=== PATIENT | female | born 1965 | race Caucasian/White ===

== ENCOUNTER 2016-09-27 18:03 | Observation (INO) ==
[2016-09-27] MEDS ORDERED: Aspirin 81 MG TAB.CHEW PO ONE (18:21)
[2016-09-27 18:45] LABS: Basophils # 0.1 K/mcL (0.0-0.2); Basophils % 0.6 %; Eosinophils # 0.1 K/mcL (0.0-0.6); Hematocrit 35.8 % (35.3-44.9); Hemoglobin 11.7 g/dL (11.5-15.4); Lymphocytes % 20.3 %; Mean Corpuscular HGB Conc 32.7 g/dL (31.6-35.5); Mean Corpuscular Hemoglobin 28.8 pg (28.0-33.3); Mean Corpuscular Volume 88.2 fL (83.0-100.0); Mean Platelet Volume 8.7 fL (9.4-12.4); Monocytes # 0.5 K/mcL (0.0-1.3); Monocytes % 4.7 %; Neutrophils # 7.3 K/mcL (1.6-8.9); Platelet Count 272 K/mcL (140-400); Red Blood Count 4.06 M/mcL (3.82-4.97); Red Cell Distribution Width 14.7 % (11.5-14.5); Segmented Neutrophils % 72.4 %
[2016-09-27 18:48] LABS: INR 1.1; Prothrombin Time 12.1 Seconds (9.4-12.1)
[2016-09-27 18:54] LABS: BUN/Creatinine Ratio 15 (6-26); Blood Urea Nitrogen 11 mg/dL (7-20); Calcium 9.2 mg/dL (8.6-10.8); Carbon Dioxide 24 mEq/L (19-29); Chloride 104 mEq/L (98-109); Glucose 89 mg/dL (70-99); Osmolality,Calculated 285 (280-300); Potassium 3.6 mEq/L (3.5-4.5); Sodium 138 mEq/L (136-145); eGFR For African Americans > 60 (> 60); eGFR For Non-African Americans > 60 (> 60)
--- NOTE | 2016-09-27 19:01 | Emergency Department Note ---
START Narrative - START START: I examined this patient and my medical decision-making was reviewed with the [facility] OFFICIAL/PA/Advanced Practice Nurse/Resident Physician. I agree with the documented findings, disposition and treatment plan as described except to the extent set forth below. ED attending note: Patient seen with emergency medicine resident Dr. Alamo. Please see a copy of his note for details of the H&P, evaluation, management and disposition of this patient. We independently had [id number] contact with the patient Briefly: 51-year-old female smoker no history of hypertension family history of coronary artery disease has a hard score of 3 EKG no acute ischemic changes pending labs and x-ray. Patient be worked up for ACS. Disposition pending. Patient stable.
--- NOTE | 2016-09-27 20:12 | Emergency Department Note ---
Disposition Clinical Impression: Chest pain Qualifiers: Chest pain type: unspecified Qualified Code(s): R07.9 - Chest pain, unspecified Disposition: Admitted As Inpatient Condition: Good Time of Disposition: 22:15 General Adult HPI - General Chief complaint: ED Chest Pain Stated complaint: N/V, Sweating , left shoulder pain Time Seen by Provider: 09/27/16 18:18 Source: patient Limitations: no limitations Nursing Notes Reviewed: Yes Vital Signs Reviewed: Yes - History of Present Illness HPI Narrative: Patient was awoken today and noticed that she had left arm pain. States that she got she slept on it wrong. Around 3:30 she began to have chest pain shortness of breath, diaphoretic the pain radiated up into her neck she had nauseated and vomited. She has no cardiac history. She states the pain was an ache on the left side of her chest. Pain Scale: 9 - Related Data Home Medications Medication Instructions Recorded Confirmed Escitalopram [Lexapro] 20 mg PO DAILY 09/27/16 09/27/16 Allergies Allergy/AdvReac Type Severity Reaction Status Date / Time codeine Allergy Unresponsiv Verified 09/27/16 21:00 e All systems ED: reviewed and negative except as stated. Constitutional: Denies: fever, chills ENT ED: Denies: congestion Cardiovascular: Reports: chest pain. Denies: palpitations, dyspnea on exertion , orthopnea, syncope Respiratory: Reports: dyspnea. Denies: cough Gastrointestinal: Reports: nausea (Associated with the chest pain), vomiting (A couple episodes associated with the chest pain), diarrhea (Chronic. States after she had her gallbladder out it is been ongoing.). Denies: abdominal pain Genitourinary: Denies: urgency, dysuria, frequency, hematuria Musculoskeletal: Reports: neck pain. Denies: back pain Integumentary: Denies: rash Neurological: Denies: headache, weakness Past Medical History - Past Medical History Medical history: Reports: no medical history Psychiatric history: Reports: anxiety, depression - Social History Smoking Status: Former smoker Smokeless Tobacco Status: No Alcohol use: Reports: none Drug use: Reports: none Physical Exam - General Limitations: no limitations General appearance: alert, in no apparent distress - Head Head exam: atraumatic, normocephalic - Eye Eye exam: Present: normal appearance, PERRL, EOMI. Absent: scleral icterus - ENT ENT exam: normal exam, normal oropharynx, mucous membranes moist - Neck Neck exam: Present: normal inspection, full ROM, trachea midline. Absent: meningismus - Chest Chest inspection: Present: normal inspection, symmetric chest wall rise - Respiratory Respiratory exam: Present: normal lung sounds bilaterally. Absent: respiratory distress - Cardiovascular Cardiovascular exam: Present: regular rate, normal rhythm, normal heart sounds - Abdominal Exam Abdominal exam: Present: soft, Non-Tender, normal bowel sounds - Extremities Exam Extremities exam: Present: normal inspection, full ROM - Expanded Lower Extremity Exam Hip/Pelvis exam: Present: normal inspection, full ROM - Back Exam Back exam: Present: normal inspection, full ROM. Absent: tenderness - Neurological Exam Neurological exam: Present: alert, oriented X3 - Psychiatric Psychiatric exam: Present: normal affect, normal mood - Skin Skin exam: Present: warm, dry, intact, normal color. Absent: rash, cyanosis, diaphoresis Course Course Narrative: Well-appearing female patient resting comfortably in bed in no distress. She states that she woke up this afternoon with some left shoulder pain that radiated down into her arm. She states she thought she slept on it wrong. Went to work. Around 3:30 at work she developed chest pain that radiated up into her neck. She got very diaphoretic and nauseated and vomited one time. Patient denies any cardiac history. She denies any family cardiac history. She states she is comfortable at this time however left arm is still aching. She is refusing pain medication. We will do a cardiac workup on patient while she is here. She is agreeable to this. - Reevaluation(s) Reevaluation #1: Patient resting comfortably in bed. I am concerned for ACS. She has never had a cardiac workup and her chest pain is very suspicious for this. We will admit patient for cardiac workup. She is agreeable to this plan. Patient's lab work is unremarkable. There is no ST elevation or depression noted on her EKG. However her story is very concerning for ACS. Time: 20:25 Vital Signs Temperature 97.9 F 09/27/16 18:08 Pulse Rate 89 09/27/16 18:08 Respiratory Rate 18 09/27/16 18:08 Blood Pressure 148/87 09/27/16 18:08 O2 Sat by Pulse Oximetry 97 09/27/16 18:08 Temperature 97.9 F 09/27/16 21:36 Pulse Rate 88 09/27/16 21:36 Respiratory Rate 17 09/27/16 21:36 Blood Pressure 151/88 09/27/16 21:36 O2 Sat by Pulse Oximetry 96 09/27/16 21:36 Oxygen Delivery Oxygen Delivery Room Air Medical Decision Making - Lab Data Result diagrams: 09/27/16 18:31 09/27/16 18:31 Lab Results 09/27/16 09/27/16 09/27/16 Range/Units 18:30 18:31 18:31 WBC 10.0 (4.3-11.1) K/mcL RBC 4.06 (3.82-4.97) M/mcL Hgb 11.7 (11.5-15.4) g/dL Hct 35.8 (35.3-44.9) % MCV 88.2 (83.0-100.0) fL MCH 28.8 (28.0-33.3) pg MCHC 32.7 (31.6-35.5) g/dL RDW 14.7 H (11.5-14.5) % Plt Count 272 (140-400) K/mcL MPV 8.7 L (9.4-12.4) fL Immature Gran % 1.0 (0-4) % Seg Neutrophils % 72.4 % Lymphocytes % 20.3 % Monocytes % 4.7 % Eosinophils % 1.0 % Basophils % 0.6 % Neutrophils # 7.3 (1.6-8.9) K/mcL Lymphocytes # 2.0 (0.6-4.6) K/mcL Monocytes # 0.5 (0.0-1.3) K/mcL Eosinophils # 0.1 (0.0-0.6) K/mcL Basophils # 0.1 (0.0-0.2) K/mcL PT 12.1 (9.4-12.1) Seconds INR 1.1 Sodium (136-145) mEq/L Potassium (3.5-4.5) mEq/L Chloride (98-109) mEq/L Carbon Dioxide (19-29) mEq/L BUN (7-20) mg/dL Creatinine (0.57-1.11) mg/dL Est GFR ( Amer) (> 60) Est GFR (Non-Af Amer) (> 60) BUN/Creatinine Ratio (6-26) Glucose (70-99) mg/dL Calculated Osmolality (280-300) Calcium (8.6-10.8) mg/dL Troponin I (0-0.03) ng/mL Triglycerides 230 H (< 150) mg/dL Cholesterol 190 (< 200) mg/dL LDL Cholesterol, Calc 95 (0-99) mg/dL VLDL Cholesterol, Calc 46 H (< 31) mg/dL HDL Cholesterol 49 (40-59) mg/dL Cholesterol/HDL Ratio 3.9 (0-4.9) Urine Test (Negative) 09/27/16 09/27/16 09/27/16 Range/Units 18:31 18:31 19:55 WBC (4.3-11.1) K/mcL RBC (3.82-4.97) M/mcL Hgb (11.5-15.4) g/dL Hct (35.3-44.9) % MCV (83.0-100.0) fL MCH (28.0-33.3) pg MCHC (31.6-35.5) g/dL RDW (11.5-14.5) % Plt Count (140-400) K/mcL MPV (9.4-12.4) fL Immature Gran % (0-4) % Seg Neutrophils % % Lymphocytes % % Monocytes % % Eosinophils % % Basophils % % Neutrophils # (1.6-8.9) K/mcL Lymphocytes # (0.6-4.6) K/mcL Monocytes # (0.0-1.3) K/mcL Eosinophils # (0.0-0.6) K/mcL Basophils # (0.0-0.2) K/mcL PT (9.4-12.1) Seconds INR Sodium 138 (136-145) mEq/L Potassium 3.6 (3.5-4.5) mEq/L Chloride 104 (98-109) mEq/L Carbon Dioxide 24 (19-29) mEq/L BUN 11 (7-20) mg/dL Creatinine 0.75 (0.57-1.11) mg/dL Est GFR ( Amer) > 60 (> 60) Est GFR (Non-Af Amer) > 60 (> 60) BUN/Creatinine Ratio 15 (6-26) Glucose 89 (70-99) mg/dL Calculated Osmolality 285 (280-300) Calcium 9.2 (8.6-10.8) mg/dL Troponin I 0.00 (0-0.03) ng/mL Triglycerides (< 150) mg/dL Cholesterol (< 200) mg/dL LDL Cholesterol, Calc (0-99) mg/dL VLDL Cholesterol, Calc (< 31) mg/dL HDL Cholesterol (40-59) mg/dL Cholesterol/HDL Ratio (0-4.9) Urine Test Negative (Negative) 09/27/16 Range/Units 20:32 WBC (4.3-11.1) K/mcL RBC (3.82-4.97) M/mcL Hgb (11.5-15.4) g/dL Hct (35.3-44.9) % MCV (83.0-100.0) fL MCH (28.0-33.3) pg MCHC (31.6-35.5) g/dL RDW (11.5-14.5) % Plt Count (140-400) K/mcL MPV (9.4-12.4) fL Immature Gran % (0-4) % Seg Neutrophils % % Lymphocytes % % Monocytes % % Eosinophils % % Basophils % % Neutrophils # (1.6-8.9) K/mcL Lymphocytes # (0.6-4.6) K/mcL Monocytes # (0.0-1.3) K/mcL Eosinophils # (0.0-0.6) K/mcL Basophils # (0.0-0.2) K/mcL PT (9.4-12.1) Seconds INR Sodium (136-145) mEq/L Potassium (3.5-4.5) mEq/L Chloride (98-109) mEq/L Carbon Dioxide (19-29) mEq/L BUN (7-20) mg/dL Creatinine (0.57-1.11) mg/dL Est GFR ( Amer) (> 60) Est GFR (Non-Af Amer) (> 60) BUN/Creatinine Ratio (6-26) Glucose (70-99) mg/dL Calculated Osmolality (280-300) Calcium (8.6-10.8) mg/dL Troponin I 0.00 (0-0.03) ng/mL Triglycerides (< 150) mg/dL Cholesterol (< 200) mg/dL LDL Cholesterol, Calc (0-99) mg/dL VLDL Cholesterol, Calc (< 31) mg/dL HDL Cholesterol (40-59) mg/dL Cholesterol/HDL Ratio (0-4.9) Urine Test (Negative) Attestation Statement - Attestation Attestation: Dr Espinoza note: Patient was seen in conjunction with resident Dr. Karime Alamo; please see her charting for complete documentation. I have spent [id number] and with the patient and I agree with patient's treatment and disposition; ekg shows no acute injury; initial troponin testing unremarkable;
--- NOTE | 2016-09-27 22:04 | Internal Med History&Physical ---
Date of Encounter: 09/28/16 Time of Encounter: 22:04 Assessment and Plan (1) Chest pain Current visit: Yes Status: Acute -Unstable angina. -Initial presentation concerning for ACS-L sided chest pain with radiation to L neck and L arm. Non pleuritic. -3 episodes today. Reproducible on palpation of left chest-"squeezing pain that does not radiate" and that her "heart normally is fast" and patient complains of always feeling hot. Total hysterectomy and quit hormone therapy several years ago via physician guidance. No previous thyroid studies -No previous cardiac history of workup. -CXR, EKG, Trop, Normal. Full dose Aspirin given in ED -Odd presentation with reproducible CP on palpation, costocondritis association too? Regardless, patient warrants ACS workup. -Patient is able to walk, however, is obese and would benefit more from nuclear stress test. -Patient low risk, lovenox 30mg q12h. Plan -ACS rule out -Lipid panel drawn. Redraw labs in morning. TSH, T4 -Nuclear stress test ordered for morning -NPO midnight -Top x2. Hold off on Bblocker because of stress test -Nitro PRN -No cardiology consult needed at this time Qualifiers: Chest pain type: unspecified Qualified Code(s): R07.9 - Chest pain, unspecified (2) Hypertension Current visit: Yes Status: Acute -BP rechecked by myself 164/92. -Denies previous use of hypertensive medicine. -Per attending, amlodipine 5mg for BP Plan -Amlodipine 5mg with goal of 140/90 Qualifiers: Hypertension type: essential hypertension Qualified Code(s): I10 - Essential (primary) hypertension (3) DVT prophylaxis Current visit: Yes Status: Acute -Not concern for PE, no MA -lovenox, subthereuputic. Internal Medicine - H&P: HPI Chief complaint: L sided chest pain Admitted From: Emergency Dept Plans for Post Hospital Care: Home History of present illness: Ms. Cid is a 51 year old female, past medical history depression/anxiety, admitted for ACS rule out. Patient woke up this morning with left shoulder pain and radiation down the left arm described as a squeezing sensation. Associated Numbness and tingling in the left hand. Lasted for a few minutes. 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 Associated nausea, one episode of vomiting and diaphoresis. Denies palpitation, non-pleuritic CP. Pain reproducible on palpation. Denies blurry vision, headache, shortness of breath, abdominal pain, dysuria, acid reflux,FND. Patient resting comfortably in bed. 3 episodes since this morning. Did have syncopal episode 20 years ago. Denies ever having palpitations. No cardiac workup. Admits to mother having "a ring placed in her heart to monitor heart rate" age 70, father with hypertension and diabetes. Former smoker quit 12 years ago. Denies alcohol use, excessive caffeine use, or drug use. Never treated for hypertension. States "my heart rate is usually fast ". Admits to lifelong feeling hot and warm. No thyroid workup in past. Past Med Surg Social Fam HX - Past Medical History Medical history: no medical history Psychiatric history: anxiety, depression - Past Surgical History Surgical History: cholecystectomy, hysterectomy, orthopedic, other - Social History Smoking Status: Former smoker Smokeless Tobacco Status: No Alcohol use: none Drug use: none - Family History Mother Hx Family Cardiac Disorders: Yes ("ring placed in heart to monitor heart rate") Father Hx Family Cancer: Yes (liver) Internal Medicine - H&P: Meds Escitalopram [Lexapro] 20 mg PO DAILY 09/27/16 [History] Allergies codeine Allergy (Verified 09/27/16 21:00) Unresponsive All Systems PM: A 10-system review of systems was performed and is negative for pertinent findings except as documented above in the HPI. - Constitutional Constitutional: as per HPI - EENT Eyes: no change in vision, no discharge, no pain, no photophobia - Cardiovascular Cardiovascular ROS IM: as per HPI - Respiratory Respiratory: as per HPI - Gastrointestinal Gastrointestinal: as per HPI - Constitutional Vitals: Temp Pulse Resp BP Pulse Ox 97.9 F 88 17 151/88 96 09/27/16 21:36 09/27/16 21:36 09/27/16 21:36 09/27/16 21:36 09/27/16 21:36 General appearance: Present: A&O X 3, no acute distress, answers questions appropriately - Head Head exam: Present: atraumatic, normocephalic - Eye Eye exam: Present: PERRL, conjuntiva pink, sclera anicteric Pupils: Present: PERRL - Neck Neck exam general surgery: Present: supple, trachea midline. Absent: lymphadenopathy - Respiratory Respiratory exam: Present: CTAB. Absent: accessory muscle use, rales, rhonchi, wheezes - Cardiovascular Cardiovascular exam: Present: RRR, +S1, +S2. Absent: diastolic murmur, gallop, rubs, systolic murmur - GI/Abdominal GI/Abdominal exam: Present: soft, no peritoneal signs. Absent: distended, tenderness - Neurological Exam Neurological exam: Present: CN II-XII intact, oriented X3, no focal deficits - Psychiatric Psychiatric exam: Present: normal affect, normal mood - Other Additional findings: Chest pain reproducible on palpation of L chest. Internal Med - H&P Results - Labs CBC & Chem 7: 09/27/16 18:31 09/27/16 18:31
[2016-09-27] MEDS ORDERED: Ondansetron 4 MG/2 ML VIAL IVP PRN (22:12)
[2016-09-27] MEDS ORDERED: Naloxone 0.4 MG/ML INJ IVP PRN (22:12)
[2016-09-27] MEDS ORDERED: Acetaminophen 325 MG TABLET PO PRN (22:12)
[2016-09-27 22:36] LABS: Chol/HDL Ratio 3.9 (0-4.9)
[2016-09-27] MEDS ORDERED: Nitroglycerin 0.4 MG TAB.SUBL SL PRN (23:17)
[2016-09-27] MEDS: *HR* Enoxaparin 30 MG/0.3 ML SYRINGE SQ SCH (23:54)
[2016-09-27] MEDS: amLODIPine 5 MG TABLET PO SCH (23:55)
[2016-09-28] MEDS: *HR* Enoxaparin 30 MG/0.3 ML SYRINGE SQ SCH ×2 (05:01→17:05)
[2016-09-28 05:50] LABS: Hematocrit 36.5 % (35.3-44.9); Hemoglobin 11.9 g/dL (11.5-15.4); Mean Corpuscular HGB Conc 32.6 g/dL (31.6-35.5); Mean Corpuscular Hemoglobin 29.4 pg (28.0-33.3); Mean Corpuscular Volume 90.1 fL (83.0-100.0); Mean Platelet Volume 9.3 fL (9.4-12.4); Platelet Count 272 K/mcL (140-400); Red Blood Count 4.05 M/mcL (3.82-4.97)
[2016-09-28] MEDS ORDERED: Regadenoson 0.4 MG/5 ML SYRINGE IVP ONE (06:05)
[2016-09-28 06:06] LABS: BUN/Creatinine Ratio 18 (6-26); Blood Urea Nitrogen 13 mg/dL (7-20); Calcium 9.2 mg/dL (8.6-10.8); Carbon Dioxide 25 mEq/L (19-29); Chloride 105 mEq/L (98-109); Glucose 104 mg/dL (70-99); Osmolality,Calculated 290 (280-300); Potassium 3.6 mEq/L (3.5-4.5); Sodium 140 mEq/L (136-145); eGFR For African Americans > 60 (> 60); eGFR For Non-African Americans > 60 (> 60)
[2016-09-28 06:31] LABS: Thyroid Stimulating Hormone 3.504 mcIU/mL (0.350-4.840)
[2016-09-28] MEDS: amLODIPine 5 MG TABLET PO SCH (09:14)
[2016-09-28] MEDS: Aspirin Enteric Coated 81 MG Tablet PO SCH (09:14)
--- NOTE | 2016-09-28 13:22 | ECHO - Doppler Report ---
Echocardiogram Name: Brooke Cid Date of Study: 09/28/2016 Date: 1965 Ht: 65.0 in Medical Record#: [id number] Age: 51 Wt: 277.0 lb Gender: Female BSA: 2.27 Order #: [id number] Location: [facility] Room #: 3B48 Reading Physician: Go Goldsmith DO, REAGAN, MAULIK Finishing Trimmer: Jacquelin Delvalle RDCS Ordering Physician: Reena Chaidez MD Primary Physician: Jefry Valdez DO Indications: Chest pain Impressions: LVEF 60-65%. Normal LV chamber size, wall thickness and function. Mild left ventricular diastolic dysfunction. Normal right ventricular structure and function. Unable to estimate RVSP due to lack of TR jet. No significant valvular dysfunction. Left Ventricular Wall Motion: Rest Echo Findings All wall segments showed normal motion. Findings: Study Quality * Technically sub-optimal due to body habitus. ECG Findings * Normal sinus rhythm. Left Ventricle * LVEF 60-65%. * Normal LV chamber size, wall thickness and function. * Mild left ventricular diastolic dysfunction. Right Ventricle * Normal right ventricular structure and function. Left Atrium * Normal left atrial size. Right Atrium * Normal right atrial size. Interatrial Septum * Interatrial septum not well evaluated. Aortic Valve * Trileaflet aortic valve with normal function. * No aortic stenosis. * No aortic regurgitation. Mitral Valve * Normal mitral valve structure and function. * No mitral regurgitation. * No mitral stenosis. Tricuspid Valve * Normal tricuspid valve structure and function. * No tricuspid regurgitation. * Unable to estimate RVSP due to lack of TR jet. Pulmonic Valve * Pulmonic valve is not well visualized. Aorta * Normally sized aortic root. Pericardium * The pericardium appears normal. * Appearance is consistent with a {type} mitral valve replacement. Function appears {function{. IVC * Normal IVC dimensions and inspiratory collapse. Pulmonary Artery * Normal visualized portions of the main pulmonary artery. History Family History of CAD Measurements: BP: 136/ 80 2D Normal Values RVIDd: 3.40 cm <2.7 cm IVSd: 1.00 cm 0.6 - 1.0 cm LVIDd: 4.60 cm 3.7 - 5.6 cm LVPWd: .90 cm 0.6 - 1.1 cm LVIDs: 2.50 cm 1.5 - 3.6 cm AO: 2.50 cm < 4.0 cm LA: 3.00 cm 2.0 - 4.0cm %FS: 45.70 cm >25 % LA volume: 29 Mitral Valve Peak E:.76 m/sec Peak A:.90 m/sec E/A Ratio:0.8 Peak E' Lat Jonathan:13 cm/s Peak E' Med Jonathan:7.21 cm/s E/E' Lat Ratio:5.8 E/E' Med Ratio:10.5 Updated by Go Goldsmith DO, REAGAN, MAULIK, ANN on 09/28/2016 1:17:49 PM electronically signed on 09/28/2016 1:18:29 PM with status of Final Wall Motion Lan: 1=Normal, 2=Hypokinesis, 3=Akinesis, 4=Dyskinesis, 5=Aneurysmal, 6=Hyperkinetic, X=Not Visualized (Blank)=Missing
--- NOTE | 2016-09-28 14:13 | Internal Med Progress Note ---
Date of Encounter: 09/28/16 Time of Encounter: 13:00 - Assessment and plan (1) Chest pain Current Visit: Yes Status: Acute Assessment and plan: Patient currently denies chest pain but states that she continues to have bouts of chest pressure. Chest x-ray negative. Troponins negative. 2 day nuclear stress test in process. ITS Impressions Chest X-Ray 09/27/16 18:21 IMPRESSION: No acute process. D/ / Michael Momin MD / Michael Momin MD Interpreting Provider: Michael Momin MD Echocardiogram impressions: LVEF 60-65%. Normal LV chamber size, wall thickness and function. Mild left ventricular diastolic dysfunction. Normal right ventricular structure and function. Unable to estimate RVSP due to lack of TR jet. No significant valvular dysfunction. Qualifiers: Chest pain type: unspecified Qualified Code(s): R07.9 - Chest pain, unspecified (2) Headache Current Visit: Yes Status: Acute Assessment and plan: Is resolving, likely secondary to caffeine abstinence. No vision or balance changes. (3) Hypertension Current Visit: Yes Status: Acute Assessment and plan: No antihypertensive medications at home. Started on amlodipine, currently normotensive, will continue to trend. Qualifiers: Hypertension type: essential hypertension Qualified Code(s): I10 - Essential (primary) hypertension (4) DVT prophylaxis Current Visit: Yes Status: Acute Assessment and plan: Subcutaneous Lovenox (5) Morbid obesity with BMI of 45.0-49.9, adult Current Visit: Yes Status: Chronic - Subjective Interval history: Patient seen and examined. On examination, patient sitting upright in bed watching television. She denies any pain at this time and states she is still having intermittent bouts of chest pressure. She denies shortness of breath. She states the headache had started this morning is starting to resolve she is attributing that to her drinking caffeine with lunch. - Constitutional Vitals: Temp Pulse Resp BP Pulse Ox 97.9 F 85 16 124/73 94 09/28/16 11:00 09/28/16 11:00 09/28/16 11:00 09/28/16 11:00 09/28/16 11:00 General appearance: Present: A&O X 3, morbidly obese, pleasant, no acute distress, answers questions appropriately - Head Head exam: Present: atraumatic, normocephalic - Eye Eye exam: Present: PERRL, conjuntiva pink, sclera anicteric Pupils: Present: PERRL - Neck Neck exam general surgery: Present: supple, trachea midline. Absent: lymphadenopathy - Respiratory Respiratory exam: Present: CTAB. Absent: accessory muscle use, rales, respiratory distress, rhonchi, wheezes - Cardiovascular Cardiovascular exam: Present: RRR, +S1, +S2. Absent: diastolic murmur, gallop, rubs, systolic murmur - GI/Abdominal GI/Abdominal exam: Present: normal bowel sounds, soft, no peritoneal signs. Absent: distended, tenderness - Extremities Exam Extremities exam: Present: warm, radial pulses palpable and symetrical. Absent : calf tenderness, cyanotic, pedal edema - Neurological Exam Neurological exam: Present: alert, CN II-XII intact, normal gait, oriented X3, no focal deficits, strengths equal and symetr throughout. Absent: pronater drift, facial droop, speech deficit - Skin Skin exam: Present: dry, intact, normal color, warm Internal Medicine: Result - Labs CBC & Chem 7: 09/28/16 05:27 09/28/16 05:27 Labs: Short CBC 09/28/16 Range/Units 05:27 WBC 9.8 (4.3-11.1) K/mcL Hgb 11.9 (11.5-15.4) g/dL Hct 36.5 (35.3-44.9) % Plt Count 272 (140-400) K/mcL BMP 09/28/16 05:27 Sodium 140 Potassium 3.6 Chloride 105 Carbon Dioxide 25 BUN 13 Creatinine 0.74 Glucose 104 H Calcium 9.2 Cardiac Enzymes 09/28/16 09/28/16 Range/Units 05:27 11:26 Troponin I 0.00 0.00 (0-0.03) ng/mL - ABG Interpretation ABG results: PT/INR, D-dimer PT 12.1 Seconds (9.4-12.1) 09/27/16 18:31 Consult Discharge Plan - Plan Referrals: Jefry Valdez DO [Primary Care Provider] -
[2016-09-28] MEDS ORDERED: traMADol 50 MG TABLET PO PRN (14:20)
[2016-09-28] MEDS ORDERED: Ibuprofen 400 MG TABLET PO PRN (14:20)
--- NOTE | 2016-09-28 17:44 | Electrocardiograph Report ---
[place] [id number] Test Date: 2016-09-27 Pat Name: Brooke Cid Department: 104 Room: 3B Gender: F [employer]airer [employer] Production: : 1965 Requested By: Florencio Kay Order Number: [id number] Reading MD: Stiven Bey Measurements Intervals [place] Rate: 86 P: 22 AL: 152 QRS: 39 QRSD: 90 T: 23 QT: 372 QTc: 415 Interpretive Statements SINUS RHYTHM Electronically Signed On 09-28-2016 17:42:53 EDT by Stiven Bey
[2016-09-29] MEDS: *HR* Enoxaparin 30 MG/0.3 ML SYRINGE SQ SCH (06:14)
[2016-09-29 06:47] LABS: BUN/Creatinine Ratio 16 (6-26); Blood Urea Nitrogen 11 mg/dL (7-20); Carbon Dioxide 24 mEq/L (19-29); Chloride 106 mEq/L (98-109); Glucose 98 mg/dL (70-99); Osmolality,Calculated 287 (280-300); Potassium 3.8 mEq/L (3.5-4.5); Sodium 139 mEq/L (136-145); eGFR For African Americans > 60 (> 60); eGFR For Non-African Americans > 60 (> 60)
[2016-09-29] MEDS: amLODIPine 5 MG TABLET PO SCH (08:55)
[2016-09-29] MEDS: Aspirin Enteric Coated 81 MG Tablet PO SCH (08:55)
--- NOTE | 2016-09-29 09:33 | Nuclear Medicine Stress Report ---
Regadenoson Nuclear 2 day Name: Brooke Cid Date of Study: 09/28/2016 Date: 1965 Ht: 65.0 in Medical Record#: [id number] Age: 51 Wt: 277.0 lb Gender: Female Order #: [id number] Location: [facility] Room: [facility] Supervising Provider: Ghanshyam Hollis CNP Reading Physician: Ruchi Valdivia DO Ordering Physician: Clarissa Will CNP Primary Care Physician: Jefry Valdez DO Stress Technologist: Guido Valdivia CRT Form Tamping Machine Operator: Moo Henry Indications: Chest Pain Impression: Perfusion imaging was negative for ischemia or infarct. Pharmacologic ECG was negative for ischemia at the level of heart rate achieved. Gated EF = 68%. History: Hypertension Diabetes Stress Test Summary: Stress Test Type: Pharmacologic Baseline Information: Initial Heart Rate: 88 Blood Pressure: 145/100 Stress Information: Test Terminated Due to (primary): As per protocol Maximum Blood Pressure: 138/96 Maximum Heart Rate: 102 Percent Maximum Heart Rate Achieved: 61 Double Product: [id number] METS Reached: 1 Symptoms: No chest symptoms Nuclear Summary: SPECT myocardial perfusion imaging using [id number] Sestamibi given intravenously was performed at rest and following cardiac stress testing. The resting images were obtained following initial dose of 34.7 mCi. Following stress an additional dose of 33.1 mCi was given at peak exercise or 30 seconds post regadenoson infusion. Medication Given: Time Medication Dose Units Route Findings: Stress Note * Resting ECG demonstrated normal sinus rhythm with nonspecific ST abnormalities. * Pharmacologic stress ECG is negative for ischemia at level of heart rate achieved. * No arrhythmias were noted during stress. * Patient had no chest pain during stress. Hemodynamic responses * Normal hemodynamic responses to pharmacologic stress. Study Quality * Technically difficult/limited study. Gated EF % * Gated EF = 68%. Left Ventricle * The left ventricle is not dilated. TID * No evidence of transient ischemic dilatation. Lung Uptake * There is no evidence of increase lung uptake. NORMALS * Normal wall motion. PERFUSION * During rest, there is a medium sized perfusion defect of moderate intensity involving the inferior wall. Perfusion improves during stress. Findings are consistent with artifact. * Other areas demonstrate normal rest and stress perfusion. Updated by Ruchi Valdivia on 09/29/2016 9:27:57 AM electronically signed on 09/29/2016 9:28:27 AM with status of Final
[2016-09-29 15:09] VITALS: BP 141/78
--- NOTE | 2016-09-29 15:48 | Discharge Summary ---
Date of Encounter: 09/29/16 Time of Encounter: 14:45 - Discharge Diagnosis (1) Chest pain Priority: Primary Status: Resolved Comments: Patient denied chest pain on the discharge. Stress test negative. ACS ruled out. Qualifiers: Chest pain type: unspecified Qualified Code(s): R07.9 - Chest pain, unspecified (2) Costochondral chest pain Priority: Primary Status: Suspected (3) Headache Priority: Primary Status: Resolved (4) Hypertension Priority: Primary Status: Acute Comments: No antihypertensive medications at home. Started on amlodipine, normotensive on day of discharge. Recommend daily blood pressure checks at home, and following up outpatient Qualifiers: Hypertension type: essential hypertension Qualified Code(s): I10 - Essential (primary) hypertension (5) DVT prophylaxis Priority: Primary Status: Acute Comments: Subcutaneous Lovenox while admitted (6) Morbid obesity with BMI of 45.0-49.9, adult Priority: Secondary Status: Chronic - Discharge Medications Prescriptions: Amlodipine [Norvasc] 5 mg PO DAILY #30 tablet Home Medications: Escitalopram [Lexapro] 20 mg PO DAILY 09/27/16 [History] Amlodipine [Norvasc] 5 mg PO DAILY #30 tablet 09/29/16 [Rx] Allergies/Adverse Reactions: Allergies codeine Allergy (Verified 09/27/16 21:00) Unresponsive Procedures/tests Complete & Pending: Procedures Performed prior 72 hours Category Date Time Status NM bridgette perf SPECT multi [NM] Routine Exams 09/28/16 00:57 Taken EV echocardiogram Routine Y 09/28/16 00:51 Completed SP pharm nuclear stress Routine Y 09/28/16 00:56 Completed Date of admission: 09/27/16 20:33 Primary care physician: Jefry Valdez Discharging clinician: Clarissa Will Anticipated date of discharge: 09/29/16 - Patient Status Disposition: Home, Self-Care Condition: Good Functional capacity at discharge: independent ambulation Overall status at discharge: patient is back to baseline - Discharge Instructions Follow Up With: Jefry Valdez DO [Primary Care Provider] - Additional Instructions: Follow-up with primary care provider within one to 2 weeks, check blood pressure daily and keep a log - Diet and Activity Activity: increase activity as tolerated Diet: low fat, low cholesterol, low salt diet Hospital course: Ms. Cid is a 51 year old female with past medical history of depression/ anxiety, so cholecystectomy, hysterectomy, morbid obesity. Patient woke up on the morning of presentation with left shoulder pain that radiated down her left arm and was described as a squeezing sensation. It was associated with numbness and tingling in her left hand and lasted for a few minutes. Then while she was at work later on in the afternoon, she was sitting at her desk when she started having left-sided chest pain radiating to her neck and down her left arm similar to the morning episode. Associated symptoms include nausea , 1 episode of vomiting, and diaphoresis. Patient denied palpitations. Pain reproducible with palpation. Workup in the emergency department unremarkable. Chest x-ray negative. Patient was admitted to the hospitalist service for further evaluation and management. Troponins negative 4. Patient had an echocardiogram that was unremarkable with ejection fraction of 60-65% and mild diastolic dysfunction. Patient was euvolemic on examination throughout this admission and denied shortness of breath. No pedal edema. She had a 2 day nuclear stress test that was negative for ischemia or infarct. ACS ruled out. Pain consistent with musculoskeletal etiology. Patient also had a headache on the first day of her admission that resolved after she was able to eat again and had caffeine. She was noted to be hypertensive and was not on medication at home since she was started on amlodipine and her blood pressure became better controlled. She was instructed to check her blood pressure daily and keep a log for her primary care provider. She was discharged home in stable condition with close outpatient follow-up recommended. ITS Impressions Chest X-Ray 09/27/16 18:21 IMPRESSION: No acute process. D/ / Michael Momin MD / Michael Momin MD Interpreting Provider: Michael Momin MD Echocardiogram impressions: LVEF 60-65%. Normal LV chamber size, wall thickness and function. Mild left ventricular diastolic dysfunction. Normal right ventricular structure and function. Unable to estimate RVSP due to lack of TR jet. No significant valvular dysfunction. 2 day nuclear stress test impression: Perfusion imaging was negative for ischemia or infarct. Pharmacologic ECG was negative for ischemia at the level of heart rate achieved. Gated ejection fraction equals 68%. - Time Spent with Patient Total time spent providing and/or coordinating discharge services: - Constitutional Vitals: Temp Pulse Resp BP Pulse Ox 97.9 F 85 17 141/78 96 09/29/16 15:08 09/29/16 15:08 09/29/16 15:08 09/29/16 15:08 09/29/16 15:08 General appearance: Present: A&O X 3, morbidly obese, pleasant, no acute distress, answers questions appropriately - Head Head exam: Present: atraumatic, normocephalic - Eye Eye exam: Present: PERRL, conjuntiva pink, sclera anicteric Pupils: Present: PERRL - Neck Neck exam general surgery: Present: supple, trachea midline. Absent: lymphadenopathy - Respiratory Respiratory exam: Present: chest wall tenderness, CTAB. Absent: accessory muscle use, rales, respiratory distress, rhonchi, wheezes - Cardiovascular Cardiovascular exam: Present: RRR, +S1, +S2. Absent: diastolic murmur, gallop, rubs, systolic murmur - GI/Abdominal GI/Abdominal exam: Present: normal bowel sounds, soft, no peritoneal signs. Absent: distended, tenderness - Extremities Exam Extremities exam: Present: warm, radial pulses palpable and symetrical. Absent : calf tenderness, cyanotic, pedal edema - Neurological Exam Neurological exam: Present: alert, CN II-XII intact, normal gait, oriented X3, no focal deficits, strengths equal and symetr throughout. Absent: pronater drift, facial droop, speech deficit - Skin Skin exam: Present: dry, intact, normal color, warm
== END 2016-09-29 16:37 | disposition home or self-care (01) ==
LOC: EMEROO 18:03 → 3BNU 18:03
PROVIDERS: ADMIT Internal Medicine; ATTEND Nurse Practitioner Family